=== PATIENT | female | born 1955 | race Caucasian/White ===

== ENCOUNTER → 2021-01-23 09:40 | Outpatient (CLI) | payer MEDICARE, SELFPAY ==
[2021-01-23 19:19] LABS: Add Manual Diff / Slide Review NO; Basophils Absolute Auto 0 /uL (0-100); Basophils Percent Auto 0.8 % (0-2); Eosinophils Absolute Auto 100 /uL (0-450); Eosinophils Percent Auto 1.6 % (2-4); Hematocrit 40.3 % (36-46); Hemoglobin 13.3 g/dL (12.0-16.0); Lymphocytes Absolute Auto 1100 /uL (1100-4500); Mean Corpuscular Hemoglobin 29.9 PG (26-34); Mean Corpuscular Volume 90.7 fL (80-100); Monocytes Absolute Auto 400 /uL (0-900); Monocytes Percent Auto 8.7 % (3-14); Neutrophils Absolute Auto 3000 /uL (1500-7000); Neutrophils Percent Auto 64.9 % (50-75); Platelet Count 250 X10^3/uL (150-400); Red Blood Cell Count 4.45 X10^6/uL (4.0-5.2); Red Cell Distribution Width 13.6 % (11.6-14.8); White Blood Cell Count 4.6 X10^3/uL (4.5-11.0)
[2021-01-23 19:29] LABS: Alanine Aminotransferase 18 IU/L (<35); Albumin 3.9 g/dL (3.5-5.0); Albumin Globulin Ratio 1.3 (1.0-2.8); Alkaline Phosphatase 69 U/L (38-126); Aspartate Aminotransferase 38 IU/L (14-36); BUN Creatinine Ratio 27.8 (6-22); Bilirubin Total 0.3 mg/dL (0.2-1.3); Blood Urea Nitrogen 20 mg/dL (7-17); Calcium 9.5 mg/dL (8.4-10.2); Carbon Dioxide 30 mmol/L (22-32); Chloride 102 mmol/L (98-107); Cholesterol 189 mg/dL (140-199); Estimated Glomerular Filt Rate > 60.0 mL/min (>60); Glucose 91 mg/dL (80-110); HDL Cholesterol 89 mg/dL (40-60); HEMOLYSIS < 15 (0-50); LDL Cholesterol Calculated 90 mg/dL (<100); Potassium 4.6 mmol/L (3.4-5.1); Sodium 137 mmol/L (137-145); Total Protein 6.9 g/dL (6.3-8.2); Triglycerides 51 mg/dL (35-150)
[2021-01-23 19:55] LABS: Thyroid Stimulating Hormone 5.51 uIU/mL (0.47-4.68)
== END ==
PROVIDERS: PCP Family Medicine; Visit Provider Family Medicine
DX: F43.10 Post-traumatic stress disorder, unspecified (principal)
CPT/HCPCS: 80053; 80061; 84443; 85025

== ENCOUNTER → 2021-03-26 10:02 | Outpatient (CLI) | payer MEDICARE, SELFPAY ==
[2021-03-26 20:58] LABS: COVID19 - ORCAS (NP or Nasal) Negative (Negative)
== END ==
PROVIDERS: PCP Family Medicine; Visit Provider Physician Assistant
DX: Z20.822 Contact with and (suspected) exposure to COVID-19 (principal); Z01.818 Encounter for other preprocedural examination
CPT/HCPCS: C9803; U0003

== ENCOUNTER 2021-03-29 08:54 | Day surgery (SDC) | payer MEDICARE, SELFPAY ==
--- NOTE | 2021-03-29 | PATH_ITS ---
[facility] Accession Number: [id number] . 01 Material submitted: . PART A: colon - ASCENDING COLON POLYP PART B: colon - DISTAL ASCENDING COLON POLYP . 02 Diagnosis: A. Ascending Colon Polyp: Portion of sessile serrated adenoma x1. Superficial portion of colorectal mucosa x1 with no significant histomorphologic abnormality. . B. Distal Ascending Colon Polyp: Portions of sessile serrated adenoma x2. MRV 04/02/2021 1315 Local . 02 Electronically signed: . Kimberly Mosqueda MD, Pathologist NPI- [id number] . 01 Gross description: . Part A: ASCENDING COLON POLYP: Received in formalin are 2 fragment(s) of anaya, soft tissue measuring 0.4 x 0.3 x 0.2 cm to 0.2 x 0.1 x 0.1 cm submitted entirely in 1 cassette(s) Part B: DISTAL ASCENDING COLON POLYP: Received in formalin are 2 fragment(s) of anaya, soft tissue measuring 0.4 x 0.3 x 0.2 cm to 0.4 x 0.3 x 0.1 cm submitted entirely in 1 cassette(s) /NIRMAL 03/30/2021 0356 Local . 02 Pathologist provided ICD-10: K63.5, Z12.11 . 02 CPT . 528815, [id number] Performed at: 01 [facility] [address] [id number] MD Vidal Hamilton MD Phone: [phone] Performed at: 02 [facility] [place] [address] [place], [place] [id number] MD Shweta Rush MD Phone: [phone]
[2021-03-29] MEDS: LACTATED RINGERS 1,000 ML 100 ML IV (10:00)
[2021-03-29 10:01] VITALS: BP 122/71; PULSE 65; RESP 18; TEMP 36.8; O2SAT 100; BMI 23.8
--- NOTE | 2021-03-29 10:10 | PM.HP.1 ---
History of Present Illness History of Present Illness Date Patient Seen: 03/29/21 Time Patient Seen: 10:11 Chief complaint: SDC Narrative: colon cancer screening no prior colonoscopy no symptoms family history is in grandfather over 60 yo wants to try w/o sedation Patient History Medical History Borderline hypothyroidism Breast cancer screening Colon cancer screening Encounter for screening for respiratory tuberculosis Encounter to establish care History of carpal tunnel syndrome Screening, lipid Comment: PMH of PTSD and depression Meds Home Medications and Allergies Home Medications Medication Instructions Recorded Confirmed Type lamotrigine 200 mg tablet 200 mg PO DAILY #90 tab 01/09/21 03/29/21 Rx methylphenidate HCl 20 mg 20 mg PO DAILY #30 tab 01/09/21 03/08/21 Rx tablet,extended release sertraline 50 mg tablet 50 mg PO DAILY #90 tab 01/09/21 03/29/21 Rx levothyroxine 50 mcg tablet 50 mcg PO DAILY #30 tab 03/27/21 03/29/21 Rx Allergies Allergy/AdvReac Type Severity Reaction Status Date / Time No Known Drug Allergies Allergy Verified 03/29/21 10:19 Review of Systems Review of Systems ROS: Yes All systems reviewed with the patient and are negative except as otherwise documented Exam Const General: cooperative and healthy appearing [facility] Head: normal to inspection, normocephalic and atraumatic Eyes General: appearance normal, both eyes and all related structures Neck Neck: trachea midline Chest Chest: normal inspection of the chest Resp Effort & Inspection: normal respiratory effort and able to speak in complete sentences Cardio Rate: regular rate Rhythm: regular rhythm GI Palpation: soft Skin General: no rashes or lesions noted Neuro General: patient alert and patient oriented x3 Extrem General: full ROM Psych Appearance: grossly normal Judgment: judgment good Assessment & Plan Assessment & Plan narrative: colon cancer screening. Has had prior negative heme yearly. this is first scope. colonoscopy w/o sedation as requested COVID-19 COVID-19 status: Negative Time Spent With Patient Time with patient: 15-24 minutes
[2021-03-29] MEDS: ONDANSETRON 4 MG/2 ML INJ IV (10:40)
[2021-03-29] MEDS: MIDAZOLAM 5 MG/5 ML VIAL IV (10:44)
[2021-03-29] MEDS: fentaNYL 250 MCG/5 ML INJ IV (10:48)
--- NOTE | 2021-03-29 10:50 | PM.OP.ENDO ---
Operative Date/Time/Diagnoses Date of procedure: 03/29/21 Time of procedure: 10:50 Pre-op diagnosis: screening colon cancer Post-op diagnosis: same Procedure & Clinicians Study performed: colonoscopy with moderate sedation Same procedure as scheduled: Yes Indications: colon cancer screening Surgeon: Mena Underwood Procedure Notes SCOAP/Timeout: done Procedure in detail: Preop diagnosis colon cancer screening Postop diagnosis same Operative procedure: Colonoscopy with moderate sedation with cold forceps polypectomy x2 Surgeon: Katia Underwood MD Findings: 2 small less than 3 mm polyps 1 in the proximal ascending and 1 in the distal ascending taken with cold forceps biopsy Anesthetic: 1 mg Versed 50 mg of fentanyl Procedure: Patient is placed in the lateral position. Rectal exam was performed showing normal tone no masses. Colonoscope was inserted into the rectum and advanced to the ileocecal valve with minimal difficulty. Insufflation and extraction of the scope including a retroflex. The above findings as stated. Impression 2 small less than 3 mm sessile polyps in the ascending colon Plan: Repeat colonoscopy depending upon pathology Scope withdrawal time: 6 Sedation minutes: 20 Findings: polyp (2 >3mm polyps one proximal and one distal ascending colon) Specimen(s): none sent (2 polyps) Complications: none Impression: 2 small sessile polyps both less than 3 mm in size. No diverticulosis. Good bowel prep. Frequency of colonoscopy to be determined by pathology Post-procedure Recommendations: Colonscopy in 5 years (unless pathology is not adenomatose and then 10 years is appropriate) Plan for aftercare: home Follow up: as needed Disposition: PACU
[2021-03-29 10:56] VITALS: BP 99/59; PULSE 69; RESP 16; TEMP 36.2; O2SAT 99
[2021-03-29 11:01] VITALS: BP 96/61; PULSE 62; RESP 16; O2SAT 99
[2021-03-29 11:04] VITALS: BP 109/67; PULSE 64; RESP 16; O2SAT 100
[2021-03-29 11:07] VITALS: BP 100/62; PULSE 65; RESP 18; TEMP 36.6; O2SAT 100
--- NOTE | 2021-03-29 11:18 | SUR.PHASEI ---
Gave report to Shirin BLAND .
== END 2021-03-29 11:30 | disposition home or self-care (01) ==
PROVIDERS: PCP Family Medicine; Referring Provider Surgery; Visit Provider Surgery
PROC: 0DJD8ZZ Inspection of Lower Intestinal Tract, Via Natural or Artificial Opening Endoscopic (ICD-10-PCS; CPT 45378; principal; 2021-03-29 10:45)
DX: Z12.11 Encounter for screening for malignant neoplasm of colon (principal); D12.2 Benign neoplasm of ascending colon
CPT/HCPCS: 45380; 99152; J2250; J2405; J3010

== ENCOUNTER → 2021-05-23 08:02 | Outpatient (CLI) | payer MEDICARE, SELFPAY ==
[2021-05-23 19:20] LABS: Free T4, Direct Thyroxine 1.15 ng/dL (0.78-2.19)
[2021-05-23 19:34] LABS: Thyroid Stimulating Hormone 1.63 uIU/mL (0.47-4.68)
== END ==
PROVIDERS: PCP Family Medicine; Referring Provider Family Medicine; Visit Provider Family Medicine
DX: E03.9 Hypothyroidism, unspecified (principal)
CPT/HCPCS: 84439; 84443

== ENCOUNTER → 2021-08-20 13:36 | Outpatient (CLI) | payer MEDICARE, SELFPAY ==
[2021-08-20 20:11] LABS: Alanine Aminotransferase 15 IU/L (<35); Albumin 4.5 g/dL (3.5-5.0); Albumin Globulin Ratio 1.3 (1.0-2.8); Alkaline Phosphatase 66 U/L (38-126); Aspartate Aminotransferase 31 IU/L (14-36); BUN Creatinine Ratio 23.5 (6-22); Bilirubin Total 0.4 mg/dL (0.2-1.3); Blood Urea Nitrogen 20 mg/dL (7-17); Calcium 10.2 mg/dL (8.4-10.2); Carbon Dioxide 31 mmol/L (22-32); Chloride 103 mmol/L (98-107); Estimated Glomerular Filt Rate > 60.0 mL/min (>60); Globulin 3.4 g/dL (1.7-4.1); Glucose 81 mg/dL (80-110); HEMOLYSIS < 15 (0-50); Potassium 4.5 mmol/L (3.4-5.1); Sodium 139 mmol/L (137-145); Total Protein 7.9 g/dL (6.3-8.2)
[2021-08-20 20:22] LABS: Free T4, Direct Thyroxine 0.99 ng/dL (0.78-2.19)
[2021-08-20 20:36] LABS: TSH w/ Reflex to FT4 2.91 uIU/mL (0.47-4.68)
== END ==
PROVIDERS: PCP Family Medicine; Referring Provider Physician Assistant; Visit Provider Physician Assistant
DX: E03.9 Hypothyroidism, unspecified (principal); R74.01 Elevation of levels of liver transaminase levels
CPT/HCPCS: 80053; 84439; 84443

== ENCOUNTER → 2022-03-05 10:51 | Outpatient (CLI) | payer MEDICARE, SELFPAY | PROVIDERS: PCP Family Medicine; Referring Provider Family Medicine; Visit Provider Family Medicine | DX: Z78.0 Asymptomatic menopausal state (principal); M79.605 Pain in left leg; Z87.81 Personal history of (healed) traumatic fracture; Z13.820 Encounter for screening for osteoporosis; M81.0 Age-related osteoporosis without current pathological fracture | CPT/HCPCS: 77080 ==

== ENCOUNTER → 2022-08-28 14:02 | Outpatient (CLI) | payer MEDICARE, SELFPAY ==
[2022-08-28 19:41] LABS: Alanine Aminotransferase 24 IU/L (<35); Albumin 4.6 g/dL (3.5-5.0); Albumin Globulin Ratio 1.2 (1.0-2.8); Alkaline Phosphatase 59 U/L (38-126); Aspartate Aminotransferase 34 IU/L (14-36); BUN Creatinine Ratio 18.9 (6-22); Bilirubin Total 0.4 mg/dL (0.2-1.3); Blood Urea Nitrogen 14 mg/dL (7-17); Calcium 9.6 mg/dL (8.4-10.2); Carbon Dioxide 29 mmol/L (22-32); Chloride 98 mmol/L (98-107); Estimated Glomerular Filt Rate > 60 mL/min (>60); Globulin 3.7 g/dL (1.7-4.1); Glucose 67 mg/dL (80-110); HEMOLYSIS < 15 (0-50); Potassium 4.1 mmol/L (3.4-5.1); Sodium 137 mmol/L (137-145); Total Protein 8.3 g/dL (6.3-8.2)
[2022-08-28 20:11] LABS: TSH w/ Reflex to FT4 2.43 uIU/mL (0.47-4.68)
== END ==
PROVIDERS: PCP Physician Assistant; Visit Provider Physician Assistant
DX: E03.9 Hypothyroidism, unspecified (principal)
CPT/HCPCS: 80053; 84443

== ENCOUNTER → 2023-08-19 08:52 | Outpatient (CLI) | payer OTHER, SELFPAY ==
[2023-08-19 19:42] LABS: Alanine Aminotransferase 21 IU/L (<35); Albumin 4.2 g/dL (3.5-5.0); Albumin Globulin Ratio 1.3 (1.0-2.8); Alkaline Phosphatase 59 U/L (38-126); BUN Creatinine Ratio 22.4 (6-22); Bilirubin Total 0.5 mg/dL (0.2-1.3); Blood Urea Nitrogen 15 mg/dL (7-17); Calcium 9.7 mg/dL (8.4-10.2); Carbon Dioxide 27 mmol/L (22-32); Chloride 102 mmol/L (98-107); Cholesterol 205 mg/dL (140-199); Estimated Glomerular Filt Rate > 60 mL/min (>60); Globulin 3.2 g/dL (1.7-4.1); Glucose 107 mg/dL (80-110); HDL Cholesterol 76 mg/dL (40-60); LDL Cholesterol Calculated 113 mg/dL (<100); Potassium 4.4 mmol/L (3.4-5.1); Sodium 136 mmol/L (137-145); Total Protein 7.4 g/dL (6.3-8.2); Triglycerides 78 mg/dL (35-150)
[2023-08-19 20:15] LABS: Thyroid Stimulating Hormone 5.04 uIU/mL (0.47-4.68)
[2023-08-22 16:17] LABS: HEMOLYSIS < 15 (0-50)
[2023-08-22 16:18] LABS: Aspartate Aminotransferase 33 IU/L (14-36)
== END ==
PROVIDERS: PCP Family Medicine; Visit Provider Family Medicine
DX: Z13.6 Encounter for screening for cardiovascular disorders (principal); Z13.1 Encounter for screening for diabetes mellitus; E03.9 Hypothyroidism, unspecified
CPT/HCPCS: 80053; 80061; 84443

== ENCOUNTER → 2023-12-03 11:33 | Outpatient (CLI) | payer MEDICARE, SELFPAY ==
[2023-12-03 19:42] LABS: Thyroid Stimulating Hormone 2.94 uIU/mL (0.47-4.68)
== END ==
PROVIDERS: PCP Family Medicine; Visit Provider Family Medicine
DX: E03.9 Hypothyroidism, unspecified (principal)
CPT/HCPCS: 84443

== ENCOUNTER → 2024-04-20 12:08 | Outpatient (CLI) | payer MEDICARE, SELFPAY ==
--- NOTE | 2024-04-20 12:30 | DI.RAD.S_ITS ---
PROCEDURE: XR DEXA AXIAL SKELETON INDICATIONS: postmenopau, osteoporosis COMPARISON: [facility], CR, XR DEXA AXIAL SKELETON, 03/05/2022, 11:39. FINDINGS: Lumbar Spine: Bone mineral density 0.79 g/cm2, T score -2.4, previously -2.9. Left Hip: Bone mineral density 0.85 g/cm2, T score -0.7, previously -0.8. Left Femoral Neck: Bone mineral density 0.67 g/cm2, T score -1.6, previously -1.4. Right Hip: Bone mineral density 0.80 g/cm2, T score -1.2, previously -1.2. Right Femoral Neck: Bone mineral density 0.68 g/cm2, T score -1.5, previously -1.6. Fracture Risk Calculation (when applicable): 10-year fracture risk of a major osteoporotic fracture 9.4% and of a hip fracture 1.3%. (T score greater or equal to -1.0 to: NORMAL) (T score from -1.1 to -2.4: OSTEOPENIA) (T score less than or equal to -2.5: OSTEOPOROSIS) IMPRESSION: Osteopenia, with fracture risk as above. Interval improvement in the L-spine T-score. Follow-up guidelines as follows: Osteoporosis: Consider a repeat DEXA and Vertebral Fracture Assessment (VFA) exam in 2 years or sooner if medically necessary, to reassess this patient's status. Osteopenia: Consider a repeat DEXA in 2-3 years to reassess this patient's status, or if there is a new clinical indication. Normal: Consider a repeat DEXA in 5 years or sooner, or if there is a new clinical indication. All treatment decisions require clinical judgment and consideration of individual patient factors, including patient preferences, comorbidities, previous drug use, risk factors not captured in the FRAX model (e.g., frailty, falls, vitamin D deficiency, increased bone turnover, interval significant decline in bone density ) and possible under- or over-estimation of fracture risk by FRAX. In addition, the NOF Guide recommends that FDA-approved medical therapies be considered in postmenopausal women and men age >= 50 years with a: * Hip or vertebral (clinical or morphometric) fracture * T-score of <=-2.5 at the spine or hip * Ten-year fracture probability by FRAX of >= 3% for hip fracture or >=20% for major osteoporotic fracture. People with diagnosed cases of osteoporosis or at high risk for fracture should have regular bone mineral density tests. For patients eligible for Medicare, routine testing is allowed once every 2 years. The testing frequency can be increased to one year for patients who have rapidly progressing disease, those who are receiving or discontinuing medical therapy to restore bone mass, or have additional risk factors. Dictated by: Hugh Kincaid M.D. on 04/21/2024 at 11:31 Approved by: Hugh Kincaid M.D. on 04/21/2024 at 11:32
== END ==
PROVIDERS: PCP Family Medicine; Referring Provider Family Medicine; Visit Provider Family Medicine
DX: M81.0 Age-related osteoporosis without current pathological fracture (principal); E03.9 Hypothyroidism, unspecified
CPT/HCPCS: 77080

== ENCOUNTER → 2024-04-20 12:09 | Outpatient (CLI) | payer MEDICARE, SELFPAY ==
--- NOTE | 2024-04-20 13:30 | DI.MRI.S_ITS ---
PROCEDURE: MR KNEE LT WO CON INDICATIONS: effusion, left lateral knee pain, TECHNIQUE: Noncontrast sagittal PD fast spin echo and T2 fast spin echo with fat saturation, sagittal 3-D FLASH with fat saturation; coronal T1 spin echo and PD fast spin echo with fat saturation, and axial PD fast spin echo with fat saturation through the knee. COMPARISON: None. FINDINGS: Image quality: Excellent. Menisci: In the medial meniscus, there is a vertical tear of the posterior horn (series 7, image 7). There is additional small undersurface tear of the medial meniscus body, with a small meniscus flap extending into the inferior gutter (series 10, image 18). The lateral meniscus is unremarkable. Cruciate ligaments: Mucoid degeneration of the ACL. The PCL is intact. Medial structures: The medial collateral ligament appears intact. The posterior oblique ligament, semimembranosus tendon insertions, oblique popliteal ligament, and meniscocapsular junction appear intact. Visualized portions of the pes anserinus tendons appear normal. No abnormal bursal fluid. Lateral structures: The lateral collateral ligament, long and short heads of the biceps femoris tendon appear intact. The popliteus tendon appears normal; the popliteofibular ligament appears intact. The posterosuperior and anteroinferior popliteomeniscal fascicles appear intact. The arcuate and fabellofibular ligaments appear intact, on either side of the lateral inferior geniculate artery. Iliotibial band appears normal. Anterior structures: The distal quadriceps tendon is unremarkable. Mild tendinosis of the proximal patellar tendon. The lateral tilt of the patella. Patellofemoral ligaments are intact. Bones and cartilage: There is high-grade chondral irregularity in the median ridge of the patella. There is mild chondral irregularity of the lateral patellar facet. Multifocal mild subchondral marrow edema in the median ridge and the lateral patellar facet. Focal high-grade chondral loss in the medial trochlea. In the medial compartment, the cartilage is grossly well maintained. In the lateral compartment, there is mild chondral irregularity of the tibial plateau. Mild subchondral marrow edema at the tibial eminence, favor reactive. No acute fracture. Joint space: Moderate knee effusion. Large popliteal cyst. Popliteal vasculature is unremarkable. IMPRESSION: 1. Tear of the medial meniscus. 2. Mucoid degeneration of the ACL. 3. Mild patellofemoral compartment predominant chondrosis. 4. Moderate knee effusion. Large popliteal cyst. Dictated by: Shantal Torrez M.D. on 04/20/2024 at 18:06 Approved by: Shantal Torrez M.D. on 04/20/2024 at 18:16
== END ==
PROVIDERS: PCP Family Medicine; Referring Provider Family Medicine; Visit Provider Family Medicine
DX: M25.569 Pain in unspecified knee (principal); G89.29 Other chronic pain; M81.0 Age-related osteoporosis without current pathological fracture; E03.9 Hypothyroidism, unspecified
CPT/HCPCS: 73721; 77080

== ENCOUNTER → 2024-06-09 13:01 | Outpatient (CLI) | payer MEDICARE, SELFPAY ==
[2024-06-09 20:07] LABS: Thyroid Stimulating Hormone 3.46 uIU/mL (0.47-4.68)
== END ==
PROVIDERS: PCP Family Medicine; Visit Provider Family Medicine
DX: E03.9 Hypothyroidism, unspecified (principal); M81.0 Age-related osteoporosis without current pathological fracture
CPT/HCPCS: 84443

== ENCOUNTER → 2025-01-03 11:29 | Outpatient (CLI) | payer MEDICARE, SELFPAY ==
[2025-01-03 19:16] LABS: Add Manual Diff / Slide Review NO; Basophils Absolute Auto 0 /uL (0-100); Basophils Percent Auto 0.6 % (0-2); Eosinophils Absolute Auto 100 /uL (0-450); Hematocrit 40.8 % (36-46); Hemoglobin 13.5 g/dL (12.0-16.0); Lymphocytes Absolute Auto 1400 /uL (1100-4500); Mean Corpuscular HGB Conc 33.2 % (30-36); Mean Corpuscular Hemoglobin 30.1 PG (26-34); Mean Corpuscular Volume 90.5 fL (80-100); Monocytes Absolute Auto 400 /uL (0-900); Neutrophils Absolute Auto 4300 /uL (1500-7000); Neutrophils Percent Auto 69.4 % (50-75); Platelet Count 253 X10^3/uL (150-400); Red Blood Cell Count 4.51 X10^6/uL (4.0-5.2); Red Cell Distribution Width 13.8 % (11.6-14.8); White Blood Cell Count 6.2 X10^3/uL (4.5-11.0)
[2025-01-03 19:30] LABS: Alanine Aminotransferase 22 IU/L (<35); Albumin 4.6 g/dL (3.5-5.0); Albumin Globulin Ratio 1.5 (1.0-2.8); Alkaline Phosphatase 57 U/L (38-126); Aspartate Aminotransferase 36 IU/L (14-36); BUN Creatinine Ratio 19.7 (6-22); Bilirubin Total 0.5 mg/dL (0.2-1.3); Blood Urea Nitrogen 13 mg/dL (7-17); Calcium 9.6 mg/dL (8.4-10.2); Carbon Dioxide 26 mmol/L (22-32); Chloride 102 mmol/L (98-107); Cholesterol 249 mg/dL (140-199); Estimated Glomerular Filt Rate > 60 mL/min (>60); Globulin 3.1 g/dL (1.7-4.1); Glucose 98 mg/dL (70-99); HDL Cholesterol 101 mg/dL (40-60); HEMOLYSIS < 15 (0-50); LDL Cholesterol Calculated 129 mg/dL (<100); Potassium 4.3 mmol/L (3.4-5.1); Sodium 135 mmol/L (137-145); Total Protein 7.7 g/dL (6.3-8.2); Triglycerides 96 mg/dL (35-150)
== END ==
PROVIDERS: PCP Family Medicine; Visit Provider Family Medicine
DX: E03.9 Hypothyroidism, unspecified (principal); M81.0 Age-related osteoporosis without current pathological fracture; Z13.0 Encounter for screening for diseases of the blood and blood-forming organs and certain disorders involving the immune mechanism; Z13.6 Encounter for screening for cardiovascular disorders; Z13.1 Encounter for screening for diabetes mellitus
CPT/HCPCS: 80053; 80061; 84443; 85025

== ENCOUNTER → 2025-01-20 15:29 | Outpatient (CLI) | payer MEDICARE, SELFPAY ==
--- NOTE | 2025-01-20 15:30 | DI.NM.S_ITS ---
PROCEDURE: NM EXERCISE TREADMILL NON NUC COMPARISON: None. INDICATIONS: atypical chest pain, not with exertion, early fatigue FINDINGS: Patient exercised per the standard Sae protocol. Total exercise time was 9 minutes and 36 seconds. Test was terminated secondary to knee pain. Maximal heart rate attained is 150 beats per minute which is 99% of max impacted heart rate. Maximum blood pressure was 162/[place] [address]. ETELVINA -59%. 10.1 METS. No ischemic changes noted. Occasional PVCs noted in recovery. No ventricular arrhythmias noted. No chest pains voiced. Normal heart rate and blood pressure response to exercise. IMPRESSION: 1. Negative exercise treadmill stress test for ischemia. 2. Excellent exercise tolerance. Dictated by: Александр Velazquez M.D. on 01/20/2025 at 16:49 Approved by: Александр Velazquez M.D. on 01/20/2025 at 16:51
== END ==
PROVIDERS: PCP Family Medicine; Referring Provider Family Medicine; Visit Provider Family Medicine
DX: R07.89 Other chest pain (principal)
CPT/HCPCS: 93017